=== PATIENT | female | born 1960 | race Caucasian/White ===

== ENCOUNTER 2017-12-11 18:19 | Emergency (ER) | payer OTHER ==
[~2017-12-11] VITALS: Ht 160 cm; Wt 103.0 kg
[~2017-12-11 18:19] MED LIST: (None)3.5 GM OP; ADVAIR DISK2 IN; ALBUTEROL SUL0.083 % IN; BIAXIN500 M1; CIPRO500 MG PO; CIPROFLOXACN500 MG PO; CLEOCIN150 MG PO; CLINDAMYCIN150 MG PO; COMBIVENT; COMBIVENT IN; GENTAMICIN15 ML/BTL OP; KEFLEX500 MG PO; LORTAB 5 OR; METRONIDAZOL500 MG PO; NAPROSYN500 MG PO; NEXIUM40 M1 PO; NEXIUM40 MG PO; PCE500 MG PO; PREDNISONE20 MG PO; PROAIR HFA IN; QVAR80 MCG IN; ULTRAM50 MG OR; ZITHROMAX500 MG PO; [UNRECOGNIZED DRUG - SUPPLY]
[2017-12-11 19:00] LABS: HEMATOCRIT 43.7 % (37.0-47.0); HEMOGLOBIN 13.8 g/dl (12.0-16.0); IMMATURE GRANULOCYTES 0.6 % (0.0-1.0); MEAN CELL VOLUME 90.5 fL CALC (80.0-100.0); MEAN CORPUSCULAR HGB 28.6 pG CALC (26.0-32.0); MEAN CORPUSCULAR HGB CONC 31.6 g/L CALC (32.0-36.0); NEUT# 7.54 thou/uL (2.00-7.15); RED BLOOD COUNT 4.83 mill/uL (4.20-5.60); RED CELL DISTRI WIDTH 13.7 % (11.5-15.5)
[2017-12-11 19:12] LABS: ALBUMIN 3.8 g/dL (3.2-5.0); ALKALINE PHOSPHATASE 70 u/l (38-126); ANION GAP 19 (6-22 (CALC)); BILIRUBIN, TOTAL 0.3 mg/dL (0.0-1.4); BUN 17 mg/dL (7-17); BUN/CREATININE RATIO 19 (12-20 (CALC)); CARBON DIOXIDE 22 mmol/l (22-30); CHLORIDE 108 mmol/l (95-108); CREATININE 0.9 mg/dL (0.5-1.0); GFR > 60 ML/MIN (>=60 (CALC)); GFR FOR AFR.AMER. > 60 ML/MIN (>=60 (CALC)); POTASSIUM 4.5 mmol/l (3.5-5.1); SGOT/AST 16 u/l (14-36); SGPT/ALT 30 u/l (9-52); SODIUM 144 mmol/l (137-146); TOTAL PROTEIN 6.7 g/dL (6.3-8.2)
[2017-12-11 19:24] LABS: MYOGLOBIN 22 ng/mL (0 - 62)
[2017-12-11 20:40] VITALS: BP 144/66
== END 2017-12-11 20:45 | disposition home or self-care (01) | DRG 203 ==
LOC: ED 18:19
PROVIDERS: Emergency Medicine
DX: J45.901 Unspecified asthma with (acute) exacerbation (principal); R05 Cough; R06.02 Shortness of breath; R50.9 Fever, unspecified

== ENCOUNTER 2019-03-03 02:14 | Emergency (ER) | payer OTHER ==
[~2019-03-03] VITALS: Ht 160 cm; Wt 100.0 kg
[2019-03-03] MEDS ORDERED: COMBIVENT RESPIMAT IN (02:33)
[2019-03-03 03:00] LABS: HEMATOCRIT 46.5 % (37.0-47.0); HEMOGLOBIN 14.8 g/dl (12.0-16.0); IMMATURE GRANULOCYTES 0.6 % (0.0-5.0); MEAN CELL VOLUME 89.9 fL CALC (80.0-100.0); MEAN CORPUSCULAR HGB 28.6 pG CALC (26.0-32.0); MEAN CORPUSCULAR HGB CONC 31.8 g/L CALC (32.0-36.0); NEUT# 7.17 thou/uL (2.00-7.15); RED BLOOD COUNT 5.17 mill/uL (4.20-5.60); RED CELL DISTRI WIDTH 13.8 % (11.5-15.5)
[2019-03-03 03:07] LABS: ALBUMIN 4.4 g/dL (3.2-5.0); ALKALINE PHOSPHATASE 61 u/l (38-126); AMYLASE 47 u/l (30-110); ANION GAP 13 (6-22 (CALC)); BUN 17 mg/dL (7-17); BUN/CREATININE RATIO 22 (12-20 (CALC)); CARBON DIOXIDE 24 mmol/l (22-30); CHLORIDE 107 mmol/l (95-108); CREATININE 0.8 mg/dL (0.5-1.0); GFR > 60 ML/MIN (>=60 (CALC)); GFR FOR AFR.AMER. > 60 ML/MIN (>=60 (CALC)); LIPASE 91 u/l (23-300); POTASSIUM 3.8 mmol/l (3.5-5.1); SGOT/AST 23 u/l (14-36); SODIUM 141 mmol/l (137-146); TOTAL PROTEIN 7.1 g/dL (6.3-8.2)
[2019-03-03 03:19] LABS: MYOGLOBIN 30 ng/mL (0 - 62)
[2019-03-03 03:34] LABS: BILIRUBIN, TOTAL 0.6 mg/dL (0.0-1.4)
[2019-03-03 03:36] LABS: URINE BILIRUBIN - DIPSTICK NEGATIVE (NEGATIVE); URINE BLOOD DIPSTICK TRACE-LYSED (NEGATIVE); URINE COLOR YELLOW; URINE GLUCOSE - DIPSTICK NEGATIVE (NEGATIVE); URINE KETONE NEGATIVE (NEGATIVE); URINE LEUK ESTERASE TRACE (NEGATIVE); URINE NITRITE - DIPSTICK POSITIVE (Negative); URINE PROTEIN - DIPSTICK NEGATIVE (NEG-TRACE); URINE SPECIFIC GRAVITY <=1.005; URINE UROBILINOGEN - DIPSTICK 0.2 E.U./dL (0.2)
[2019-03-03 03:37] LABS: URINE BACTERIA MODERATE hpf; URINE RBC 0-2 RBC/hpf (0-5)
[2019-03-03 04:00] VITALS: BP 122/44
== END 2019-03-03 04:20 | disposition left against medical advice (07) | DRG 313 ==
LOC: ED 02:14 → ED-I 02:58 → ED 04:20
PROVIDERS: Emergency Medicine
DX: R07.9 Chest pain, unspecified (principal); R82.71 Bacteriuria; Z91.19 Patient's noncompliance with other medical treatment and regimen

== ENCOUNTER 2019-06-12 18:56 | Observation (INO) | payer OTHER ==
[~2019-06-12] VITALS: Ht 160 cm; Wt 100.5 kg
[~2019-06-12 18:56] MED LIST changes: +COMBIVENT RESPIMAT IN
[2019-06-12 20:00] LABS: HEMATOCRIT 47.2 % (37.0-47.0); HEMOGLOBIN 15.3 g/dl (12.0-16.0); IMMATURE GRANULOCYTES 0.3 % (0.0-5.0); MEAN CELL VOLUME 88.9 fL CALC (80.0-100.0); MEAN CORPUSCULAR HGB 28.8 pG CALC (26.0-32.0); MEAN CORPUSCULAR HGB CONC 32.4 g/L CALC (32.0-36.0); NEUT# 5.51 thou/uL (2.00-7.15); RED BLOOD COUNT 5.31 mill/uL (4.20-5.60); RED CELL DISTRI WIDTH 13.9 % (11.5-15.5)
[2019-06-12 20:15] LABS: ALBUMIN 4.4 g/dL (3.2-5.0); ALKALINE PHOSPHATASE 65 u/l (38-126); ANION GAP 14 (6-22 (CALC)); BILIRUBIN, TOTAL 0.6 mg/dL (0.0-1.4); BUN 11 mg/dL (7-17); BUN/CREATININE RATIO 17 (12-20 (CALC)); CARBON DIOXIDE 25 mmol/l (22-30); CHLORIDE 105 mmol/l (95-108); CREATININE 0.7 mg/dL (0.5-1.0); GFR > 60 ML/MIN (>=60 (CALC)); GFR FOR AFR.AMER. > 60 ML/MIN (>=60 (CALC)); POTASSIUM 4.1 mmol/l (3.5-5.1); SGOT/AST 20 u/l (14-36); SODIUM 140 mmol/l (137-146); TOTAL PROTEIN 7.3 g/dL (6.3-8.2)
[2019-06-12 20:24] LABS: MYOGLOBIN 34 ng/mL (0 - 62)
[2019-06-13 01:30] VITALS: BP 121/64
[2019-06-13 04:24] VITALS: BP 167/90
[2019-06-13 06:15] VITALS: BP 148/81
[2019-06-13 07:18] VITALS: BP 152/83
[2019-06-13 11:00] VITALS: BP 134/59
[2019-06-13 15:00] VITALS: BP 143/68
[2019-06-13] MEDS ORDERED: PREDNISONE10 MG PO (16:55)
[2019-06-13] MEDS ORDERED: ZYRTEC10 MG PO (16:55)
[2019-06-13] MEDS ORDERED: LEVAQUIN750 MG PO (16:55)
[2019-06-13] MEDS ORDERED: FLONASE AL50 MCG/ACT NAB (16:55)
== END 2019-06-13 17:31 | disposition home or self-care (01) | DRG 203 ==
LOC: ED 18:56 → ED-I 23:23 → ED 23:39 → ICU 23:40
PROVIDERS: Emergency Medicine; ADMIT Internal Medicine; ATTEND Internal Medicine
DX: J45.901 Unspecified asthma with (acute) exacerbation (principal); J02.0 Streptococcal pharyngitis; R06.03 Acute respiratory distress; J32.9 Chronic sinusitis, unspecified; R09.02 Hypoxemia; K21.9 Gastro-esophageal reflux disease without esophagitis; Z88.0 Allergy status to penicillin

== ENCOUNTER 2020-06-06 00:59 | Emergency (ER) | payer OTHER ==
[~2020-06-06] VITALS: Ht 157.5 cm; Wt 109.1 kg
[~2020-06-06 00:59] MED LIST changes: +FLONASE AL50 MCG/ACT NAB; +LEVAQUIN750 MG PO; +PREDNISONE10 MG PO; +ZYRTEC10 MG PO
[2020-06-06 01:08] VITALS: BP 148/76
[2020-06-06] MEDS ORDERED: CIPROFLOXACN500 MG PO (01:24)
[2020-06-06] MEDS ORDERED: PYRIDIUM200 MG PO (01:24)
[2020-06-06 01:33] LABS: URINE BILIRUBIN - DIPSTICK NEGATIVE (NEGATIVE); URINE BLOOD DIPSTICK MODERATE (NEGATIVE); URINE COLOR YELLOW; URINE GLUCOSE - DIPSTICK NEGATIVE (NEGATIVE); URINE KETONE TRACE mg/dL (NEGATIVE); URINE NITRITE - DIPSTICK NEGATIVE (Negative); URINE PH 5.5 (4.5-8.0); URINE PROTEIN - DIPSTICK NEGATIVE (NEG-TRACE); URINE SPECIFIC GRAVITY >=1.030; URINE UROBILINOGEN - DIPSTICK 0.2 E.U./dL (0.2)
[2020-06-06 01:41] LABS: URINE LEUK ESTERASE NEGATIVE (NEGATIVE)
[2020-06-06 01:42] LABS: URINE EPITHELIAL CELLS MANY EPI/hpf (0-FEW); URINE RBC 50-100 RBC/hpf (0-5)
[2020-06-06 01:43] LABS: URINE BACTERIA MODERATE hpf
== END 2020-06-06 01:50 | disposition home or self-care (01) | DRG 690 ==
LOC: ED 00:59
DX: N39.0 Urinary tract infection, site not specified (principal); J45.909 Unspecified asthma, uncomplicated

== ENCOUNTER 2020-07-09 14:58 | Emergency (ER) | payer OTHER ==
[~2020-07-09] VITALS: Ht 157.5 cm; Wt 85.0 kg
[~2020-07-09 14:58] MED LIST changes: +PYRIDIUM200 MG PO
[2020-07-09] MEDS ORDERED: TRAMADOL HYDROC50 M1 PO ×2 (18:34→19:23)
[2020-07-09 19:00] VITALS: BP 170/72
== END 2020-07-09 19:00 | disposition home or self-care (01) | DRG 204 ==
LOC: ED 14:58
DX: R07.81 Pleurodynia (principal); S80.211A Abrasion, right knee, initial encounter; R51.9 Headache, unspecified; T14.8XXA Other injury of unspecified body region, initial encounter; J45.909 Unspecified asthma, uncomplicated; W01.0XXA Fall on same level from slipping, tripping and stumbling without subsequent striking against object, initial encounter; Y92.009 Unspecified place in unspecified non-institutional (private) residence as the place of occurrence of the external cause

== ENCOUNTER 2020-09-07 20:35 | Emergency (ER) | payer OTHER ==
[~2020-09-07] VITALS: Ht 157.5 cm; Wt 106.8 kg
[~2020-09-07 20:35] MED LIST changes: +TRAMADOL HYDROC50 M1 PO
[2020-09-07 22:25] VITALS: BP 168/77
== END 2020-09-07 22:25 | disposition home or self-care (01) | DRG 563 ==
LOC: ED 20:35
PROC: 2W3UXYZ Immobilization of Right Toe using Other Device (ICD-10-PCS; principal; 2020-09-07)
DX: S92.511A Displaced fracture of proximal phalanx of right lesser toe(s), initial encounter for closed fracture (principal); J45.909 Unspecified asthma, uncomplicated; W20.8XXA Other cause of strike by thrown, projected or falling object, initial encounter; Y92.009 Unspecified place in unspecified non-institutional (private) residence as the place of occurrence of the external cause

== ENCOUNTER 2022-01-26 21:05 | Emergency (ER) | payer OTHER ==
[~2022-01-26] VITALS: Ht 160 cm; Wt 111.3 kg
[2022-01-26] MEDS ORDERED: CIPROFLOXACN500 MG PO (21:32)
[2022-01-26 21:55] LABS: HEMATOCRIT 41.8 % (37.0-47.0); HEMOGLOBIN 13.6 g/dl (12.0-16.0); IMMATURE GRANULOCYTES 0.8 % (0.0-5.0); MEAN CELL VOLUME 86.9 fL CALC (80.0-100.0); MEAN CORPUSCULAR HGB 28.3 pG CALC (26.0-32.0); MEAN CORPUSCULAR HGB CONC 32.5 g/dL CAL (32.0-36.0); NEUT# 5.77 thou/uL (2.00-7.15); RED BLOOD COUNT 4.81 mill/uL (4.20-5.60); RED CELL DISTRI WIDTH 13.8 % (11.5-15.5)
[2022-01-26 21:55] LABS: URINE BILIRUBIN - DIPSTICK NEGATIVE (NEGATIVE); URINE BLOOD DIPSTICK TRACE-INTACT (NEGATIVE); URINE COLOR YELLOW; URINE GLUCOSE - DIPSTICK NEGATIVE (NEGATIVE); URINE KETONE NEGATIVE (NEGATIVE); URINE LEUK ESTERASE NEGATIVE (NEGATIVE); URINE PH 6.5 (4.5-8.0); URINE PROTEIN - DIPSTICK NEGATIVE (NEG-TRACE)
[2022-01-26 21:58] LABS: URINE NITRITE - DIPSTICK POSITIVE (Negative)
[2022-01-26 22:04] LABS: URINE SQUAMOUS EPITHELIAL CELL RARE EPI/hpf (0-FEW); URINE WBC 0-2 WBC/hpf (0-5)
[2022-01-26 22:08] LABS: ALKALINE PHOSPHATASE 57 u/l (38-126); AMYLASE 53 u/l (30-110); ANION GAP 11 (6-22 (CALC)); BILIRUBIN, TOTAL 0.4 mg/dL (0.0-1.4); BUN 13 mg/dL (7-17); BUN/CREATININE RATIO 17 (12-20 (CALC)); CARBON DIOXIDE 23 mmol/l (22-30); CHLORIDE 105 mmol/l (95-108); CREATININE 0.7 mg/dL (0.5-1.0); GFR > 60 ML/MIN (>=60 (CALC)); GFR FOR AFR.AMER. > 60 ML/MIN (>=60 (CALC)); POTASSIUM 3.8 mmol/l (3.5-5.1); SGOT/AST 19 u/l (14-36); SODIUM 136 mmol/l (137-146); TOTAL PROTEIN 6.7 g/dL (6.3-8.2)
[2022-01-26] MEDS ORDERED: PROMETHAZINE HY25 M1 PO (22:41)
[2022-01-27 00:24] VITALS: BP 141/75
== END 2022-01-27 00:20 | disposition home or self-care (01) | DRG 178 ==
LOC: ED 21:05
PROVIDERS: Family Medicine
DX: U07.1 COVID-19 (principal); N39.0 Urinary tract infection, site not specified; B96.20 Unspecified Escherichia coli [E. coli] as the cause of diseases classified elsewhere; J45.909 Unspecified asthma, uncomplicated

== ENCOUNTER 2022-09-03 20:39 | Emergency (ER) | payer OTHER ==
[~2022-09-03] VITALS: Ht 160 cm; Wt 109.0 kg
[~2022-09-03 20:39] MED LIST changes: +PROMETHAZINE HY25 M1 PO
[2022-09-03 20:54] VITALS: BP 142/74
[2022-09-03 21:01] VITALS: BP 141/74
[2022-09-03 21:16] VITALS: BP 137/63
[2022-09-03 21:31] LABS: BASO% 0.4 % (0-3); EOS% 1.6 % (0-8); HEMATOCRIT 42.5 % (37.0-47.0); HEMOGLOBIN 14.1 g/dl (12.0-16.0); IMMATURE GRANULOCYTES 0.8 % (0.0-5.0); LYMPH% 20.5 % (15-41); MEAN CELL VOLUME 88.2 fL CALC (80.0-100.0); MEAN CORPUSCULAR HGB 29.3 pG CALC (26.0-32.0); MEAN CORPUSCULAR HGB CONC 33.2 g/dL CAL (32.0-36.0); MONO% 15.9 % (2-13); NEUT# 4.49 thou/uL (2.00-7.15); NEUT% 60.8 % (42-76); RED BLOOD COUNT 4.82 mill/uL (4.20-5.60); RED CELL DISTRI WIDTH 13.7 % (11.5-15.5)
[2022-09-03 21:34] VITALS: BP 145/69
[2022-09-03 21:43] LABS: ALBUMIN 4.2 g/dL (3.2-5.0); ALKALINE PHOSPHATASE 60 u/l (38-126); ANION GAP 13 (6-22 (CALC)); BILIRUBIN, TOTAL 0.7 mg/dL (0.0-1.4); BUN 18 mg/dL (7-17); BUN/CREATININE RATIO 22 (12-20 (CALC)); CARBON DIOXIDE 26 mmol/l (22-30); CHLORIDE 104 mmol/l (95-108); CREATININE 0.8 mg/dL (0.5-1.0); GFR FOR AFR.AMER. > 60 ML/MIN (>=60 (CALC)); GFR OTHER RACES > 60 ML/MIN (>=60 (CALC)); LIPASE 40 u/l (23-300); POTASSIUM 3.8 mmol/l (3.5-5.1); SGOT/AST 24 u/l (14-36); SODIUM 139 mmol/l (137-146); TOTAL PROTEIN 6.9 g/dL (6.3-8.2)
[2022-09-03 22:04] LABS: URINE BILIRUBIN - DIPSTICK NEGATIVE (NEGATIVE); URINE BLOOD DIPSTICK TRACE-INTACT (NEGATIVE); URINE COLOR YELLOW; URINE GLUCOSE - DIPSTICK NEGATIVE (NEGATIVE); URINE KETONE NEGATIVE (NEGATIVE); URINE LEUK ESTERASE NEGATIVE (NEGATIVE); URINE PROTEIN - DIPSTICK NEGATIVE (NEG-TRACE); URINE SPECIFIC GRAVITY 1.025; URINE UROBILINOGEN - DIPSTICK 0.2 E.U./dL (0.2)
[2022-09-03 22:08] LABS: URINE NITRITE - DIPSTICK NEGATIVE (Negative)
[2022-09-03] MEDS ORDERED: TRAMADOL HCL50 MG PO (23:11)
[2022-09-03 23:26] VITALS: BP 145/69
== END 2022-09-03 23:27 | disposition home or self-care (01) | DRG 446 ==
LOC: ED 20:39
PROVIDERS: Family Medicine
DX: K80.20 Calculus of gallbladder without cholecystitis without obstruction (principal); R10.11 Right upper quadrant pain
CPT/HCPCS: Q9967

== ENCOUNTER 2022-09-29 07:41 | Day surgery (SDC) | payer BC ==
[~2022-09-29] VITALS: Ht 157.5 cm; Wt 106.6 kg
[~2022-09-29 07:41] MED LIST changes: +INHALER; +TRAMADOL HCL50 MG PO
[2022-09-29] MEDS ORDERED: QVAR REDIH40 MCG/ACT IN (07:53)
[2022-09-29] MEDS ORDERED: TRAMADOL HCL50 MG PO (09:23)
[2022-09-29 12:18] VITALS: BP 122/55
== END 2022-09-29 12:10 | disposition home or self-care (01) | DRG 419 ==
LOC: ORM 07:41
PROVIDERS: ATTEND Surgery
PROC: 0FT44ZZ Resection of Gallbladder, Percutaneous Endoscopic Approach (ICD-10-PCS; principal; 2022-09-29)
DX: K80.10 Calculus of gallbladder with chronic cholecystitis without obstruction (principal); K21.9 Gastro-esophageal reflux disease without esophagitis; K44.9 Diaphragmatic hernia without obstruction or gangrene; J45.909 Unspecified asthma, uncomplicated
CPT/HCPCS: J0131; J1956

== ENCOUNTER 2023-04-17 17:45 | Emergency (ER) | payer BC ==
[~2023-04-17] VITALS: Ht 157.5 cm; Wt 108.8 kg
[~2023-04-17 17:45] MED LIST changes: +QVAR REDIH40 MCG/ACT IN
[2023-04-17 17:53] VITALS: BP 143/89
[2023-04-17 18:16] VITALS: BP 101/71
[2023-04-17 18:28] LABS: BASO% 0.2 % (0-3); EOS% 2.9 % (0-8); HEMATOCRIT 44.1 % (37.0-47.0); HEMOGLOBIN 14.2 g/dl (12.0-16.0); IMMATURE GRANULOCYTES 0.3 % (0.0-5.0); MEAN CELL VOLUME 87.7 fL CALC (80.0-100.0); MEAN CORPUSCULAR HGB 28.2 pG CALC (26.0-32.0); MEAN CORPUSCULAR HGB CONC 32.2 g/dL CAL (32.0-36.0); MONO% 6.2 % (2-13); NEUT# 12.07 thou/uL (2.00-7.15); NEUT% 73.4 % (42-76); RED BLOOD COUNT 5.03 mill/uL (4.20-5.60); RED CELL DISTRI WIDTH 13.3 % (11.5-15.5)
[2023-04-17 18:31] VITALS: BP 100/67
[2023-04-17 18:45] VITALS: BP 114/56
[2023-04-17 18:51] LABS: ALBUMIN 4.1 g/dL (3.2-5.0); ALKALINE PHOSPHATASE 63 u/l (38-126); ANION GAP 15 (6-22 (CALC)); BILIRUBIN, TOTAL 0.7 mg/dL (0.02-1.3); BUN 11 mg/dL (7-17); BUN/CREATININE RATIO 16 (12-20 (CALC)); CHLORIDE 106 mmol/l (95-108); CREATININE 0.7 mg/dL (0.5-1.0); GFR FOR AFR.AMER. > 60 ML/MIN (>=60 (CALC)); GFR OTHER RACES > 60 ML/MIN (>=60 (CALC)); MAGNESIUM 2.2 mg/dL (1.6-2.3); SGOT/AST 23 u/l (14-36); SODIUM 137 mmol/l (137-146); TOTAL PROTEIN 7.2 g/dL (6.3-8.2)
[2023-04-17 18:59] LABS: CARBON DIOXIDE 20 mmol/l (22-30)
[2023-04-17] MEDS ORDERED: ZITHROMAX TRI-500 MG PO (19:32)
[2023-04-17 19:51] VITALS: BP 114/56
== END 2023-04-17 19:59 | disposition home or self-care (01) | DRG 203 ==
LOC: ED 17:45
PROVIDERS: Family Medicine
DX: J45.901 Unspecified asthma with (acute) exacerbation (principal); J20.9 Acute bronchitis, unspecified; Z20.822 Contact with and (suspected) exposure to COVID-19

== ENCOUNTER 2023-10-02 13:29 | Emergency (ER) | payer BC ==
[2023-10-02] VITALS (9 sets, daily range): BP systolic 115–158; BP diastolic 58–93
[~2023-10-02] VITALS: Ht 157.5 cm; Wt 111.0 kg
[~2023-10-02 13:29] MED LIST changes: +ZITHROMAX TRI-500 MG PO
[2023-10-02 14:34] LABS: BASO% 0.7 % (0-3); EOS% 3.5 % (0-8); IMMATURE GRANULOCYTES 0.3 % (0.0-5.0); LYMPH% 21.6 % (15-41); MEAN CELL VOLUME 87.5 fL CALC (80.0-100.0); MEAN CORPUSCULAR HGB 28.5 pG CALC (26.0-32.0); MEAN CORPUSCULAR HGB CONC 32.6 g/dL CAL (32.0-36.0); MONO% 11.7 % (2-13); NEUT# 4.47 thou/uL (2.00-7.15); NEUT% 62.2 % (42-76); RED BLOOD COUNT 5.26 mill/uL (4.20-5.60); RED CELL DISTRI WIDTH 13.5 % (11.5-15.5)
[2023-10-02 14:39] LABS: ALBUMIN 4.4 g/dL (3.2-5.0); ALKALINE PHOSPHATASE 59 u/l (38-126); ANION GAP 12 (6-22 (CALC)); BILIRUBIN, TOTAL 0.8 mg/dL (0.02-1.3); BUN 13 mg/dL (8-23); BUN/CREATININE RATIO 18 (12-20 (CALC)); CARBON DIOXIDE 25 mmol/l (22-30); CHLORIDE 106 mmol/l (95-108); CREATININE 0.7 mg/dL (0.5-1.0); GFR FOR AFR.AMER. > 60 ML/MIN (>=60 (CALC)); GFR OTHER RACES > 60 ML/MIN (>=60 (CALC)); LIPASE 42 u/l (23-300); POTASSIUM 4.1 mmol/l (3.5-5.1); SGOT/AST 32 u/l (9-36); SODIUM 139 mmol/l (137-146); TOTAL PROTEIN 7.3 g/dL (6.3-8.2)
[2023-10-02] MEDS ORDERED: CIPROFLOXACN500 MG PO (16:23)
[2023-10-02 16:40] LABS: URINE BILIRUBIN - DIPSTICK Negative (NEGATIVE); URINE BLOOD DIPSTICK Negative (NEGATIVE); URINE GLUCOSE - DIPSTICK Negative (NEGATIVE); URINE KETONE 15 mg/dL (NEGATIVE); URINE LEUK ESTERASE Negative (NEGATIVE); URINE NITRITE - DIPSTICK Negative (Negative); URINE PROTEIN - DIPSTICK Negative (NEG-TRACE); URINE UROBILINOGEN - DIPSTICK 0.2 E.U./dL (0.2)
[2023-10-02 16:41] LABS: URINE COLOR Yellow
== END 2023-10-02 17:22 | disposition home or self-care (01) | DRG 392 ==
LOC: ED 13:29
PROVIDERS: Nurse Practitioner Family
DX: R10.31 Right lower quadrant pain (principal); M54.50 Low back pain, unspecified; J45.909 Unspecified asthma, uncomplicated

== ENCOUNTER 2023-10-04 02:29 | Emergency (ER) | payer BC ==
[~2023-10-04] VITALS: Ht 157.5 cm; Wt 111.0 kg
[2023-10-04] MEDS ORDERED: OS-CAL 500500 M1 PO (02:40)
[2023-10-04] MEDS ORDERED: LIDOCAINE TOP (03:07)
[2023-10-04] MEDS ORDERED: ACYCLOVIR800 MG PO (03:07)
[2023-10-04 03:33] VITALS: BP 139/89
== END 2023-10-04 03:33 | disposition home or self-care (01) | DRG 596 ==
LOC: ED 02:29
DX: B02.9 Zoster without complications (principal); J45.909 Unspecified asthma, uncomplicated

== ENCOUNTER 2023-10-11 13:25 | Emergency (ER) | payer BC ==
[~2023-10-11] VITALS: Ht 157.5 cm; Wt 113.3 kg
[2023-10-11] VITALS (7 sets, daily range): BP systolic 118–149; BP diastolic 58–86
[~2023-10-11 13:25] MED LIST changes: +ACYCLOVIR800 MG PO; +LIDOCAINE TOP; +OS-CAL 500500 M1 PO
[2023-10-11] MEDS ORDERED: SODIUM CHLORIDE 0.9% 1,000 ML IV ONE (13:35)
[2023-10-11] MEDS ORDERED: ONDANSETRON HCl 4 MG/2 ML SDV IV ONE ×2 (13:35→16:35)
[2023-10-11 14:25] LABS: BASO% 0.1 % (0-3); EOS% 1.9 % (0-8); HEMATOCRIT 46.5 % (37.0-47.0); HEMOGLOBIN 14.6 g/dl (12.0-16.0); IMMATURE GRANULOCYTES 0.4 % (0.0-5.0); LYMPH% 9.7 % (15-41); MEAN CELL VOLUME 88.9 fL CALC (80.0-100.0); MEAN CORPUSCULAR HGB 27.9 pG CALC (26.0-32.0); MEAN CORPUSCULAR HGB CONC 31.4 g/dL CAL (32.0-36.0); MONO% 6.1 % (2-13); NEUT# 8.91 thou/uL (2.00-7.15); NEUT% 81.8 % (42-76); RED BLOOD COUNT 5.23 mill/uL (4.20-5.60); RED CELL DISTRI WIDTH 13.6 % (11.5-15.5)
[2023-10-11 14:32] LABS: ALKALINE PHOSPHATASE 50 u/l (38-126); ANION GAP 12 (6-22 (CALC)); BUN 23 mg/dL (8-23); BUN/CREATININE RATIO 37 (12-20 (CALC)); CARBON DIOXIDE 21 mmol/l (22-30); CHLORIDE 110 mmol/l (95-108); CREATININE 0.6 mg/dL (0.5-1.0); GFR FOR AFR.AMER. > 60 ML/MIN (>=60 (CALC)); GFR OTHER RACES > 60 ML/MIN (>=60 (CALC)); LIPASE 55 u/l (23-300); POTASSIUM 4.7 mmol/l (3.5-5.1); SGOT/AST 26 u/l (9-36); SODIUM 139 mmol/l (137-146); TOTAL PROTEIN 6.5 g/dL (6.3-8.2)
[2023-10-11 14:40] LABS: BILIRUBIN, TOTAL 1.3 mg/dL (0.02-1.3)
[2023-10-11 16:18] LABS: URINE BILIRUBIN - DIPSTICK Negative (NEGATIVE); URINE BLOOD DIPSTICK Negative (NEGATIVE); URINE COLOR Yellow; URINE GLUCOSE - DIPSTICK Negative (NEGATIVE); URINE KETONE Trace mg/dL (NEGATIVE); URINE LEUK ESTERASE Negative (NEGATIVE); URINE NITRITE - DIPSTICK Negative (Negative); URINE PH 6.5 (4.5-8.0); URINE PROTEIN - DIPSTICK Negative (NEG-TRACE); URINE SPECIFIC GRAVITY 1.015; URINE UROBILINOGEN - DIPSTICK 0.2 E.U./dL (0.2)
[2023-10-11] MEDS ORDERED: ZOFRAN4 MG/TAB PO (16:35)
[2023-10-11] MEDS ORDERED: MORPHINE SULFATE 4 MG/ML VIAL IV ONE (16:35)
== END 2023-10-11 18:06 | disposition home or self-care (01) | DRG 392 ==
LOC: ED 13:25
PROVIDERS: Family Medicine
DX: R10.31 Right lower quadrant pain (principal); R11.2 Nausea with vomiting, unspecified; J45.909 Unspecified asthma, uncomplicated
CPT/HCPCS: Q9967

== ENCOUNTER 2024-04-12 13:12 | Emergency (ER) | payer BC ==
[~2024-04-12] VITALS: Ht 157.5 cm; Wt 104.8 kg
[~2024-04-12 13:12] MED LIST changes: +MECLIZINE 2525 MG PO; +PROVENTIL HFA108 MCG IN; +ZOFRAN4 MG/TAB PO
[2024-04-12 13:20] VITALS: BP 137/64
[2024-04-12 13:52] LABS: BASO% 0.4 % (0-3); EOS% 3.4 % (0-8); HEMATOCRIT 46.9 % (37.0-47.0); HEMOGLOBIN 14.9 g/dl (12.0-16.0); IMMATURE GRANULOCYTES 0.4 % (0.0-5.0); LYMPH% 19.4 % (15-41); MEAN CELL VOLUME 88.5 fL CALC (80.0-100.0); MEAN CORPUSCULAR HGB 28.1 pG CALC (26.0-32.0); MEAN CORPUSCULAR HGB CONC 31.8 g/dL CAL (32.0-36.0); MONO% 7.4 % (2-13); NEUT# 9.11 thou/uL (2.00-7.15); RED BLOOD COUNT 5.3 mill/uL (4.20-5.60); RED CELL DISTRI WIDTH 13.6 % (11.5-15.5)
[2024-04-12 14:03] LABS: CREATININE 0.9 mg/dL (0.5-1.0); POTASSIUM 3.9 mmol/l (3.5-5.1)
[2024-04-12 14:06] LABS: URINE BILIRUBIN - DIPSTICK Negative (NEGATIVE); URINE BLOOD DIPSTICK Negative (NEGATIVE); URINE COLOR Yellow; URINE GLUCOSE - DIPSTICK Negative (NEGATIVE); URINE KETONE Trace mg/dL (NEGATIVE); URINE LEUK ESTERASE Negative (NEGATIVE); URINE NITRITE - DIPSTICK Negative (Negative); URINE PH 5.5 (4.5-8.0); URINE PROTEIN - DIPSTICK Negative (NEG-TRACE); URINE SPECIFIC GRAVITY 1.015; URINE UROBILINOGEN - DIPSTICK 0.2 E.U./dL (0.2)
[2024-04-12 14:10] LABS: ALBUMIN 4.6 g/dL (3.2-5.0); BILIRUBIN, TOTAL 1.1 mg/dL (0.02-1.3); TOTAL PROTEIN 7.6 g/dL (6.3-8.2)
[2024-04-12 16:23] VITALS: BP 125/63
[2024-04-12 16:31] VITALS: BP 120/66
[2024-04-12] MEDS ORDERED: CIPROFLOXACN500 MG PO (16:45)
[2024-04-12] MEDS ORDERED: METRONIDAZOLE500 MG PO (16:45)
== END 2024-04-12 17:00 | disposition home or self-care (01) | DRG 392 ==
LOC: ED 13:12
PROVIDERS: Family Medicine
DX: R10.32 Left lower quadrant pain (principal); J45.909 Unspecified asthma, uncomplicated
CPT/HCPCS: Q9967